=== PATIENT | female | born 1970 | race Caucasian/White ===

== ENCOUNTER 2017-03-01 13:10 | Emergency (ER) | payer OTHER ==
[2017-03-01 15:53] LABS: URINE BLOOD (Dip) POC Negative (NEGATIVE); URINE GLUCOSE (Dip) POC Negative (NEGATIVE); URINE KETONES (Dip) POC 1+ (NEGATIVE); URINE LEUKOCYTE EST (Dip) POC Trace (NEGATIVE); URINE NITRITE (Dip) POC Negative (NEGATIVE); URINE TOTAL PROTEIN POC Negative (NEGATIVE)
[2017-03-01] MEDS: KETOROLAC 60 MG INJ IM (16:07)
[2017-03-01] MEDS: HYDROCODONE/APAP (5/325) TAB PO (16:10)
== END 2017-03-01 16:30 | disposition home or self-care (01) ==
LOC: FTE 13:10
DX: M54.5 Low back pain (principal)
CPT/HCPCS: 81003; 96372; 99284-25